=== PATIENT | male | born 1995 | race Caucasian/White ===

== ENCOUNTER 2021-10-25 15:02 | Observation (INO) ==
[2021-10-25 15:41] LABS: Basophils # (auto) 0.02 K/uL (0-0.2); Basophils % (auto) 0.3 %; Eosinophils # (auto) 0.05 K/uL (0-0.5); Eosinophils % (auto) 0.9 %; Hematocrit (blood only) 43.7 % (42-52); Hemoglobin 16.1 g/dL (14.0-18.0); Immature Granulocytes # (auto) 0.01 K/uL (0.00-0.02); Immature Granulocytes % (auto) 0.2 %; Lymphocytes # (auto) 1.32 K/uL (1.2-3.4); Mean Corpuscular Hemoglobin 30.7 pg (25-34); Mean Corpuscular Hgb Conc 36.8 g/dL (32-36); Mean Corpuscular Volume 83.4 fL (80-100); Mean Platelet Volume 9.6 fL (7.4-10.4); Monocytes # (auto) 0.64 K/uL (0.11-0.59); Monocytes % (auto) 11.2 %; Neutrophils # (auto) 3.69 K/uL (1.4-6.5); Neutrophils % (auto) 64.4 %; Platelet Count 304 K/uL (130-400); RDW Coefficient of Variation 12.1 % (11.5-14.5); RDW Standard Deviation 36.8 fL (36.4-46.3); Red Blood Count 5.24 M/uL (4.7-6.1); White Blood Count 5.73 K/uL (4.8-10.8)
[2021-10-25 16:02] LABS: Albumin Globulin Ratio 1.3 (0.9-2); Albumin Level 4.9 gm/dl (3.4-5.0); BUN Creatinine Ratio 14.7 (10-20); Bilirubin,Total 0.5 mg/dl (0.2-1.0); C Reactive Protein 4.56 mg/dl (0-0.5); Calcium 10.3 mg/dl (8.5-10.1); Creatinine Clr Calc Pharmacy 173.5 ml/min; Est GFR (African American) 146.7 ml/min; Est GFR (Non-African American) 126.6 ml/min; Globulin 3.7 gm/dl (2.5-4.0); Potassium 3.5 mmol/L (3.5-5.1); Total Protein 8.6 gm/dl (6.0-8.3)
[2021-10-25] MEDS ORDERED: VANCOMYCIN CONSULT ACTIVE PRN (16:05)
[2021-10-25 16:26] LABS: Procalcitonin < 0.05 ng/ml (0-0.5)
[2021-10-25] MEDS: VANCOMYCIN HCL 1,750 MG in SODIUM CHLORIDE 0.9% 500 ML IV ONE ×2 (16:30→16:34)
--- NOTE | 2021-10-25 16:30 | XRay Report ---
XR elbow LT min 3V routine CLINICAL HISTORY: pain, swelling, redness, purulent discharge. COMPARISON STUDY: No previous studies for comparison. TECHNIQUE: 3 left elbow views FINDINGS: Bones: There is no evidence for an acute fracture or dislocation. There is no lytic or blastic lesion . Joints: The joint spaces are maintained. There is no evidence for an intra-articular effusion or elev ation of the fat pads. The bones are in anatomic alignment. Soft tissues: There is mild soft tissue swelling seen surrounding the elbow particularly posteriorly. There is no radiopaque foreign body. IMPRESSION: 1. No acute osseous pathology. 2. Mild soft tissue swelling. ACT 112: Negative or not required by law. Electronically signed by: Yrn Juárez M.D. 10/25/2021 4:29 PM
[2021-10-25 16:32] LABS: Lyme Ab IgG w/WB Rflx Negative (Negative); Lyme Ab IgM w/WB Rflx Negative (Negative)
[2021-10-25] MEDS ORDERED: ONDANSETRON INJ 2 MG/ML 2 ML VIAL IV PRN (16:40)
[2021-10-25] MEDS ORDERED: MAGNESIUM HYDROXIDE SUSP 30 ML UDC PO PRN (16:40)
[2021-10-25] MEDS ORDERED: ACETAMINOPHEN 325 MG TAB PO PRN (16:40)
[2021-10-25] MEDS ORDERED: ALUMINUM/MAGNESIUM SUSP 30 ML UDC PO PRN (16:40)
[2021-10-25] MEDS ORDERED: POLYETHYLENE (MIRALAX) 17 GM PACK PO PRN (16:40)
--- NOTE | 2021-10-25 16:51 | Emergency Department Note ---
History of Present Illness General Chief complaint: Skin Problem Stated complaint: CYST ON L ELBOW Time Seen by Provider: 10/25/21 15:11 History of Present Illness Maximum Pain Intensity: 4 This 26-year-old male patient with no significant past medical history presents to the emergency department today for evaluation of left elbow infection. The patient reports no trauma or injury to the area. He was seen as an outpatient earlier today by [facility] and referred to the emergency department due to concern for joint infection. The patient's tetanus vaccination is not UTD. He has not been taking any medications for his symptoms. Pain is 4/10 and described as aching. Home Medications Medication Instructions Recorded Confirmed Type No Known Home Medications 10/25/21 10/25/21 History Allergies Allergy/AdvReac Type Severity Reaction Status Date / Time sulfamethoxazole Allergy Hives Verified 10/25/21 15:08 [From Bactrim] trimethoprim [From Bactrim] Allergy Hives Verified 10/25/21 15:08 AMOXICILLIN Allergy Unknown Hives Uncoded 10/25/21 15:08 Past Med/Surg History Social History Smoking Status: Never smoker Preferred Language: Wallisian Feels Safe at Home: Yes Review of Systems A total of 10 systems reviewed and were otherwise negative Physical Exam Vital Signs Vital Signs - 24 hr 10/25/21 15:05 Temperature 37.2 C Temperature Source Temporal Artery Scan Pulse Rate 118 H Pulse Rhythm Regular Pulse Strength Normal Respiratory Rate 20 Respiratory Effort / Characteristics Non-Labored Spontaneous Respiratory Depth Normal Respiratory Pattern Regular Blood Pressure 158/97 H Blood Pressure Mean 117 Blood Pressure Position Sitting Pulse Oximetry 99 Oxygen Delivery Method Room Air Sepsis Recent Fever Within 48 Hours No Sepsis New/Unexplained Change in Mental Status No Sepsis Action Taken by Nursing No Action Required VITALS: Vitals are noted on the nurse's note and reviewed by myself. Vital signs stable. GENERAL: This is a 26-year-old white male, in no acute distress, nondiaphoretic, well-developed well-nourished. SKIN: Erythema and edema of the left elbow. There is an open wound just proximal to the olecranon. The wound is draining purulent discharge. Not bleeding. No excoriations are clear evidence of trauma. The skin was otherwise without rashes, erythema, edema, or bruising. There is no tenting of the skin. Capillary refill less than 2 seconds. HEAD: Normocephalic atraumatic. EYES: Conjunctivae without injection, sclerae without icterus. NECK: Supple without nuchal rigidity. No lymphadenopathy. No JVD. HEART: Regular rate and rhythm without murmurs gallops or rubs. LUNGS: Clear to auscultation bilaterally without wheezes, rales or rhonchi. No retractions or accessory muscle use. MUSCULOSKELETAL: Patient is having difficulty with flexion due to the edema in the left elbow. Left elbow erythema and tenderness to palpation as previously noted. Otherwise, no muscle atrophy, erythema, or edema noted. Full range of motion without joint tenderness in all extremities except as noted. No tenderness to palpation. Normal gait. Strength 5/5 throughout. NEURO: Patient was alert and oriented to person place and time. No focal neurological deficits. Course Course The patient was seen and evaluated as above. An order was placed for continuous cardiac monitoring. The monitor shows a sinus tachycardia at a rate of 118 bpm. I discussed the case with Dr. Shah, [facility] orthopedic surgeon on-call. He recommended completing an MRI with contrast to evaluate for joint involvement. He recommends the patient be admitted to medicine for IV antibiotics and will consult. IV access obtained, labs drawn. Patient medicated with IV vancomycin. Imaging performed and reviewed by myself and radiologist as noted. Labs reviewed by myself. I discussed the recommendations with the patient at bedside. Patient was agreeable. I discussed the case with the environmental sustainability manager. I discussed the case with Dr. Segura, [facility] hospitalist. He did agree to see and evaluate the patient for admission. Administered Medications Vancomycin HCl 1,750 mg/ (Sodium Chloride) 535 mls @ 200 mls/hr IV NOW ONE Stop: 10/25/21 18:45 Last Admin: 10/25/21 16:34 Dose: Not Given Documented by: [id number] Medical Decision Making Differential Diagnosis Cellulitis, abscess, MRSA infection, DVT, necrotizing fasciitis, dermatitis, drug eruption, allergic reaction, as well as other pathologies. Medical Records Attestation: I reviewed the patient's medical records. Home Medications Current Medication List: was personally reviewed by me Laboratory Data Attestation: I reviewed the patient's lab results. No leukocytosis, anemia, thrombocytopenia. Renal, hepatic function, and electrolytes without significant abnormality. ESR 33. Lactic acid 1.8. CRP 4.56. Lyme disease testing negative. Procalcitonin negative. Result diagrams: 10/25/21 15:27 10/25/21 15:27 Lab Results 10/25/21 10/25/21 10/25/21 Range/Units 15:27 15:27 15:27 WBC 5.73 (4.8-10.8) K/uL RBC 5.24 (4.7-6.1) M/uL Hgb 16.1 (14.0-18.0) g/dL Hct 43.7 (42-52) % MCV 83.4 (80-100) fL MCH 30.7 (25-34) pg MCHC 36.8 H (32-36) g/dL RDW Std Deviation 36.8 (36.4-46.3) fL RDW Coeff of Sera 12.1 (11.5-14.5) % Plt Count 304 (130-400) K/uL MPV 9.6 (7.4-10.4) fL Immature Gran % (Auto) 0.2 % Neut % (Auto) 64.4 % Lymph % (Auto) 23.0 % Ventura % (Auto) 11.2 % Eos % (Auto) 0.9 % Baso % (Auto) 0.3 % Neut # (Auto) 3.69 (1.4-6.5) K/uL Lymph # (Auto) 1.32 (1.2-3.4) K/uL Ventura # (Auto) 0.64 H (0.11-0.59) K/uL Eos # (Auto) 0.05 (0-0.5) K/uL Baso # (Auto) 0.02 (0-0.2) K/uL Immature Gran # (Auto) 0.01 (0.00-0.02) K/uL ESR 33 H (0-15) mm/hr Sodium (136-145) mmol/L Potassium (3.5-5.1) mmol/L Chloride (98-107) mmol/L Carbon Dioxide (21-32) mmol/L Anion Gap (3-11) BUN (6-23) mg/dl Creatinine (0.6-1.4) mg/dl Est Cr Clr Drug Dosing ml/min Est GFR ( Amer) ml/min Est GFR (Non-Af Amer) ml/min BUN/Creatinine Ratio (10-20) Glucose (70-99(Fasting)) mg/dl Lactate 1.8 (0.4-2.0) mmol/L Calcium (8.5-10.1) mg/dl Total Bilirubin (0.2-1.0) mg/dl AST (13-39) U/L ALT (7-52) U/L Alkaline Phosphatase (34-104) U/L C-Reactive Protein (0-0.5) mg/dl Total Protein (6.0-8.3) gm/dl Albumin (3.4-5.0) gm/dl Globulin (2.5-4.0) gm/dl Albumin/Globulin Ratio (0.9-2) Procalcitonin (0-0.5) ng/ml Lyme Disease IgG Ab (Negative) Lyme Disease IgM Ab (Negative) 10/25/21 10/25/21 Range/Units 15:27 15:27 WBC (4.8-10.8) K/uL RBC (4.7-6.1) M/uL Hgb (14.0-18.0) g/dL Hct (42-52) % MCV (80-100) fL MCH (25-34) pg MCHC (32-36) g/dL RDW Std Deviation (36.4-46.3) fL RDW Coeff of Sera (11.5-14.5) % Plt Count (130-400) K/uL MPV (7.4-10.4) fL Immature Gran % (Auto) % Neut % (Auto) % Lymph % (Auto) % Ventura % (Auto) % Eos % (Auto) % Baso % (Auto) % Neut # (Auto) (1.4-6.5) K/uL Lymph # (Auto) (1.2-3.4) K/uL Ventura # (Auto) (0.11-0.59) K/uL Eos # (Auto) (0-0.5) K/uL Baso # (Auto) (0-0.2) K/uL Immature Gran # (Auto) (0.00-0.02) K/uL ESR (0-15) mm/hr Sodium 138 (136-145) mmol/L Potassium 3.5 (3.5-5.1) mmol/L Chloride 101 (98-107) mmol/L Carbon Dioxide 28 (21-32) mmol/L Anion Gap 9 (3-11) BUN 11 (6-23) mg/dl Creatinine 0.75 (0.6-1.4) mg/dl Est Cr Clr Drug Dosing 173.5 ml/min Est GFR ( Amer) 146.7 ml/min Est GFR (Non-Af Amer) 126.6 ml/min BUN/Creatinine Ratio 14.7 (10-20) Glucose 132 H (70-99(Fasting)) mg/dl Lactate (0.4-2.0) mmol/L Calcium 10.3 H (8.5-10.1) mg/dl Total Bilirubin 0.5 (0.2-1.0) mg/dl AST 18 (13-39) U/L ALT 30 (7-52) U/L Alkaline Phosphatase 76 (34-104) U/L C-Reactive Protein 4.56 H (0-0.5) mg/dl Total Protein 8.6 H (6.0-8.3) gm/dl Albumin 4.9 (3.4-5.0) gm/dl Globulin 3.7 (2.5-4.0) gm/dl Albumin/Globulin Ratio 1.3 (0.9-2) Procalcitonin < 0.05 (0-0.5) ng/ml Lyme Disease IgG Ab Negative (Negative) Lyme Disease IgM Ab Negative (Negative) Imaging Data Radiologist's Impression: Elbow X-Ray 10/25/21 15:17 XR elbow LT min 3V routine CLINICAL HISTORY: pain, swelling, redness, purulent discharge. COMPARISON STUDY: No previous studies for comparison. TECHNIQUE: 3 left elbow views FINDINGS: Bones: There is no evidence for an acute fracture or dislocation. There is no lytic or blastic lesion. Joints: The joint spaces are maintained. There is no evidence for an intra- articular effusion or elevation of the fat pads. The bones are in anatomic alignment. Soft tissues: There is mild soft tissue swelling seen surrounding the elbow particularly posteriorly. There is no radiopaque foreign body. IMPRESSION: 1. No acute osseous pathology. 2. Mild soft tissue swelling. ACT 112: Negative or not required by law. Electronically signed by: Yrn Juárez M.D. 10/25/2021 4:29 PM Blood Pressure Blood Pressure Findings: Elevated blood pressure Blood Pressure Disposition: further management by hospitalist MDM Narrative This 26-year-old male patient presents to the emergency department today at the recommendation of [facility] for evaluation of left elbow pain and swelling. The patient has a wound which is draining purulent discharge. This was cultured. Patient is having difficulty with flexion of the elbow. Given the location of presentation, I am concerned for septic joint. I consulted with orthopedics. Pt. will be admitted to the hospitalist service. He was started on Vancomycin after consultation with ED pharmacist. Patient was agreeable to treatment plan. Tetanus vaccine was updated. Please see hospitalist dictation regarding ongoing management care of this patient. The chart was completed utilizing [employer] Speech voice recognition software. Grammatical errors, random word insertions, pronoun errors, and incomplete sentences are an occasional consequence of this system due to software limi tations, ambient noise, and hardware issues. Any formal questions or concerns about the content, text, or information contained within the body of this dictation should be directly addressed to the provider for clarification. Impression & Plan Cellulitis, Abscess of skin or subcutaneous tissue Discharge Plan Visit Data Chief Complaint: Skin Problem Stated Complaint: CYST ON L ELBOW ED Provider: Kun Hay ED Midlevel Provider: Radha Evangelista Discharge Problem: Cellulitis, Abscess of skin or subcutaneous tissue Patient Disposition: Admitted As Inpatient Forms Stand Alone Forms: [facility] Prescriptions Prescriptions: No Action No Known Home Medications RF: 0 Referrals Referrals: Kentrell Suazo DO [Primary Care Provider] -
[2021-10-25] MEDS ORDERED: DIPHTHERIA/TETANUS/PERTUSSIS 0.5 ML SYR/VIAL IM ONE (16:52)
--- NOTE | 2021-10-25 16:55 | History & Physical Report ---
Date of Service October 25, 2021 Assessment & Plan (1) Septic bursitis of elbow: Plan: MRI pending, but suspect this is all just septic bursitis. He is overall low risk for resistant bacteria, and is not septic systemically, so I will utilize first generation cephalosporin coverage. Can always escalate if there is any worsening. Consult orthopedics to evaluate the septic bursitis, and drain if appropriate. Discussed with patient the various possibilities based on whether this is truly septic bursitis is suspected, or an actual septic joint which seems far less likely. He expresses a good understanding of the plan (2) DVT prophylaxis: Plan: Low risk, nothing warranted (3) Discharge planning issues: Plan: Observe on medical [facility] hospitalist team, orthopedics consult, comes from home, anticipate he will be able to be discharged home when ready History of Present Illness Chief Complaint: elbow pain and swelling Primary Care Provider: Kentrell Suazo DO 4 days ago a red pimple on L elbow, then it opened and started draining - and then had some tracking redness/soreness/stiffness L arm proximal to elbow as well as distal on forearm. went to [facility] - told to come to ER. painful and elbow restricted due to stiffness but feels like it's more of a soft tissue stiffness than joint pain/stiffness. no f/c/s. no n/v. 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 does vape more or less daily, occassional wine was dx'd w bipolar before but notes that he's off all meds and believes the dx was erroneous. med hx none crhonic surg tonsils and wisdom teeth fam hx mom DM soc vapes as above Allergies Allergy/AdvReac Type Severity Reaction Status Date / Time sulfamethoxazole Allergy Hives Verified 10/25/21 15:08 [From Bactrim] trimethoprim [From Bactrim] Allergy Hives Verified 10/25/21 15:08 AMOXICILLIN Allergy Unknown Hives Uncoded 10/25/21 15:08 Home Medications Medication Instructions Recorded Confirmed Type No Known Home Medications 10/25/21 10/25/21 History Past Med/Surg History Social History Smoking Status: Never smoker Preferred Language: Macedonian Feels Safe at Home: Yes Review of Systems Review of Systems: All systems reviewed & are unremarkable except as noted in HPI & below Physical Exam Physical Exam: General he is awake and alert pleasant but does appear anxious. No distress. HEENT normocephalic atraumatic mucous membranes moist. Cardio is regular to maybe slightly tachycardic but no rubs murmurs gallops. Lungs clear to auscultation bilaterally no rales rhonchi or wheeze with good effort. Abdomen is soft nondistended nontender no masses organomegaly. Extremities show no cyanosis clubbing or edema no calf tendernesssee skin for left elbow. Neuro shows cranial nerves II through XII are grossly intact gross motor and sensory intact. Good strength in his left hand, good strength in his left elbow. Skin shows very warm erythema that is very tender and somewhat fluctuant at the extensor side of his left elbow, with an open wound consistent with a pustule that is draining. Right now the drainage is mostly bloody, although it apparently was exudative earlier. Very tender very erythematous, he has erythema tracking approximately 5 to 6 cm proximal on the extensor side of his arm, and also tracks most of the way to his wrist distally but very vague and patchy and not nearly as tender as the area right around his elbow. There is no crepitus, and the only area of fluctuance is immediately by his elbow. Again elbow itself seems to have fairly full active and passive range of motion only limited by what seems to be soft tissue pain and swelling. Mental status shows good reasonable recall normal mood and affect good judgment and insight. Musculoskeletal exam as above, no other gross deformities noted Results & Data Results & Data ([facility]) Vital Signs (Past 12 Hours) Vital Signs Temp Pulse Resp BP Pulse Ox 10/25/21 15:05 99.0 F 118 H 20 158/97 H 99 Code Status & VTE Plan VTE Prophylaxis Plan VTE Prophylaxis will be ordered: No PG Care Time/CCT Total # of Minutes Spent Total Time Spent with Patient: Total time spent is greater than 50% in coordination of care (as documented) at patient's floor/unit and/or counseling patient: Coding Level of Care Code INT OBSERVATION CARE 70M LVL 3 Diagnoses Septic bursitis of elbow M71.129 DVT prophylaxis Z29.9 Discharge planning issues Z02.9
[2021-10-25] MEDS: ceFAZolin 2000MG 2,000 MG/15 ML SYR IV SCH (20:05)
[2021-10-26] MEDS: ceFAZolin 2000MG 2,000 MG/15 ML SYR IV SCH ×3 (04:00→20:05)
[2021-10-26 07:00] LABS: Basophils # (auto) 0.03 K/uL (0-0.2); Basophils % (auto) 0.4 %; Eosinophils # (auto) 0.06 K/uL (0-0.5); Eosinophils % (auto) 0.8 %; Hematocrit (blood only) 40.8 % (42-52); Hemoglobin 14.8 g/dL (14.0-18.0); Immature Granulocytes # (auto) 0.01 K/uL (0.00-0.02); Immature Granulocytes % (auto) 0.1 %; Lymphocytes # (auto) 1.88 K/uL (1.2-3.4); Lymphocytes % (auto) 26.6 %; Mean Corpuscular Hemoglobin 30.6 pg (25-34); Mean Corpuscular Hgb Conc 36.3 g/dL (32-36); Mean Corpuscular Volume 84.5 fL (80-100); Mean Platelet Volume 9.6 fL (7.4-10.4); Monocytes # (auto) 0.87 K/uL (0.11-0.59); Monocytes % (auto) 12.3 %; Neutrophils # (auto) 4.21 K/uL (1.4-6.5); Neutrophils % (auto) 59.8 %; Platelet Count 323 K/uL (130-400); RDW Coefficient of Variation 11.9 % (11.5-14.5); Red Blood Count 4.83 M/uL (4.7-6.1); White Blood Count 7.06 K/uL (4.8-10.8)
[2021-10-26 07:09] LABS: BUN Creatinine Ratio 11.4 (10-20); Calcium 9.8 mg/dl (8.5-10.1); Creatinine Clr Calc Pharmacy 164.7 ml/min; Est GFR (African American) 143.6 ml/min; Est GFR (Non-African American) 123.9 ml/min; Potassium 3.7 mmol/L (3.5-5.1)
--- NOTE | 2021-10-26 07:22 | Magnetic Resonance Report ---
MR elbow LT wo con HISTORY: Left elbow redness, swelling, purulent discharge TECHNIQUE: Sagittal T2 and axial T1-weighted sequences of the left elbow were performed without contr ast. The patient was unable to tolerate the remaining examination. COMPARISON STUDY: Left elbow radiograph 10/25/2021. FINDINGS: The study is limited from a technical standpoint due to the patient unable to tolerate the entire examination and motion artifact. There is normal marrow signal intensity seen throughout the v isualized osseous structures. No fracture or dislocation. No joint effusion. Diffuse subcutaneous brad ma seen throughout the elbow. No significant muscular deep soft tissue edema identified. No definite loculated fluid collections to suggest an abscess. Best seen on sagittal T2 sequence image 14 there i s a punctate hyperintense focus within the subcutaneous soft tissues deep to the skin marker. This is nonspecific but could represent a small puncture wound and/or focus of subcutaneous gas. There is an enlarged epitrochlear lymph node measuring 1.6 x 1.3 cm. The biceps and triceps tendons appear intac t. IMPRESSION: 1. The study is limited from a technical standpoint as the patient was unable to tolerate the entire examination. 2. Extensive subcutaneous edema throughout the elbow. No definite loculated fluid collections to sugg est an abscess. 3. No deep soft tissue edema or osteomyelitis identified. 4. No joint effusion. 5. Punctate hypointense focus within the subcutaneous soft tissues at the posterior elbow deep to the skin marker. This is nonspecific and could represent a puncture wound and/or small focus of subcutan eous gas. 5. Enlarged epitrochlear lymph node which is likely reactive ACT 112: Negative or not required by law. Electronically signed by: Trent Green M.D. 10/26/2021 7:21 AM
--- NOTE | 2021-10-26 08:29 | Hospitalist Progress Note ---
Date of Service October 26, 2021 Assessment & Plan (1) Septic bursitis of elbow: Plan: started with pimple approximately 4 days ago, drained and worsening erythema/pain/drainage. Elevated ESR/CRP on admission Cx in ER pending, many WBC, few gram positive cocci Blood cultures pending Lyme negative Orthopedics consulted MRI ordered: * 1. The study is limited from a technical standpoint as the patient was unable to tolerate the entire examination. * 2. Extensive subcutaneous edema throughout the elbow. No definite loculated fluid collections to suggest an abscess. * 3. No deep soft tissue edema or osteomyelitis identified. * 4. No joint effusion. * 5. Punctate hypointense focus within the subcutaneous soft tissues at the posterior elbow deep to the skin marker. This is nonspecific and could represent a puncture wound and/or small focus of subcutaneous gas. * 5. Enlarged epitrochlear lymph node which is likely reactive Placed on ancef, no evidence for sepsis at present. Lactic wnl on admission. Can escalate if needed/worsening however patient reports improvement, pain currently 3/10 Tylenol prn pain, antiemetics if needed Remains NPO for possible I&D today Placed on NSS while NPO for I&D asked RN to [place] area to monitor response WBC wnl, afebrile Continue to monitor (2) DVT prophylaxis: Plan: Young, low risk Nothing for now, ambulation encouraged Does have reported hx bipolar, was on medications at one point but these had been discontinued in the past (3) Discharge planning issues: Plan: NPO for OR today for I&D Admission and Anticipated Discharge Date Admission Date: October 25, 2021 Supervising Physician Co-Signing Physician Notes FROYLAN Supervision Note: I did not personally see or examine the patient today, but I verified all sheehan points of FROYLAN Muñoz's assessment and plan with the following exceptions/additions: None Subjective Patient evaluated this morning resting in bed, states previously pain so bad wasn't really able to sleep. had pimple there about 4 days ago popped, and since then worsening pain/erythema not sure if erythema improved or not as he hasn't checked but prior was mostly on back side of his arm going up to elbow but he does note pain significantly improved and rating a 3/10 currently, no need for pain medication at this time. does appear not as far up as previously described. asked rn to [place] area for comparison seen by ortho this morning, discussed small area of gas, and may require I&D. Keeping NPO for now, and will order some IVF, ask RN to provide mouth swab due to dry mouth, slight dehydration on exam until determination made. Discussed also possible another 24hr abx and then decision. Denies fever, chills, chest pain, shortness of breath, abdominal pain, nausea or vomiting at this time. Questions/concerns addressed. Review of Systems Review of Systems: All systems reviewed & are unremarkable except as noted in HPI & below Physical Exam Physical Exam: General: WD, WN male sitting up in bed, no acute distress HEENT: head normocephalic, atraumatic, mm dry, trachea midline without deviation Resp: CTAB, no w/c/r, on room air CV: RRR, no m/r/g, no edema, no calf tenderness GI: +BS, soft, non-tender : no jo MSK/Neuro: L elbow with optifoam covering small opening with purulant drainage on dressing but none able to be expressed. mildly tender to palpation with associated soft tissue swelling, warmth, and erythema., range of motion intact at the elbow and good range of motion through the hand/wrist/finger. cap refill <2 seconds Skin: see msk, otherwise no other obvious lesions/rashes Psych: AOx3, flat affect Results & Data Results & Data ([facility]) Vital Signs (Past 12 Hours) Vital Signs Temp Pulse Resp BP Pulse Ox 10/26/21 07:35 37.1 C 85 18 121/75 100 Laboratory Results 10/26/21 10/26/21 10/25/21 Range/Units 05:55 05:55 16:42 WBC 7.06 (4.8-10.8) K/uL RBC 4.83 (4.7-6.1) M/uL Hgb 14.8 (14.0-18.0) g/dL Hct 40.8 L (42-52) % MCV 84.5 (80-100) fL MCH 30.6 (25-34) pg MCHC 36.3 H (32-36) g/dL RDW Std Deviation 37.0 (36.4-46.3) fL RDW Coeff of Sera 11.9 (11.5-14.5) % Plt Count 323 (130-400) K/uL MPV 9.6 (7.4-10.4) fL Immature Gran % (Auto) 0.1 % Neut % (Auto) 59.8 % Lymph % (Auto) 26.6 % [place] % (Auto) 12.3 % Eos % (Auto) 0.8 % Baso % (Auto) 0.4 % Neut # (Auto) 4.21 (1.4-6.5) K/uL Lymph # (Auto) 1.88 (1.2-3.4) K/uL [place] # (Auto) 0.87 H (0.11-0.59) K/uL Eos # (Auto) 0.06 (0-0.5) K/uL Baso # (Auto) 0.03 (0-0.2) K/uL Immature Gran # (Auto) 0.01 (0.00-0.02) K/uL ESR (0-15) mm/hr Sodium 140 (136-145) mmol/L Potassium 3.7 (3.5-5.1) mmol/L Chloride 103 (98-107) mmol/L Carbon Dioxide 28 (21-32) mmol/L Anion Gap 9 (3-11) BUN 9 (6-23) mg/dl Creatinine 0.79 (0.6-1.4) mg/dl Est Cr Clr Drug Dosing 164.7 ml/min Est GFR ( Amer) 143.6 ml/min Est GFR (Non-Af Amer) 123.9 ml/min BUN/Creatinine Ratio 11.4 (10-20) Glucose 95 (70-99(Fasting)) mg/dl Lactate (0.4-2.0) mmol/L Calcium 9.8 (8.5-10.1) mg/dl Total Bilirubin (0.2-1.0) mg/dl AST (13-39) U/L ALT (7-52) U/L Alkaline Phosphatase (34-104) U/L C-Reactive Protein (0-0.5) mg/dl Total Protein (6.0-8.3) gm/dl Albumin (3.4-5.0) gm/dl Globulin (2.5-4.0) gm/dl Albumin/Globulin Ratio (0.9-2) Procalcitonin (0-0.5) ng/ml Lyme Disease IgG Ab (Negative) Lyme Disease IgM Ab (Negative) SARS-CoV-2, RNA, NAAT NEGATIVE (NEGATIVE) 10/25/21 10/25/21 10/25/21 Range/Units 15:27 15:27 15:27 WBC (4.8-10.8) K/uL RBC (4.7-6.1) M/uL Hgb (14.0-18.0) g/dL Hct (42-52) % MCV (80-100) fL MCH (25-34) pg MCHC (32-36) g/dL RDW Std Deviation (36.4-46.3) fL RDW Coeff of Sera (11.5-14.5) % Plt Count (130-400) K/uL MPV (7.4-10.4) fL Immature Gran % (Auto) % Neut % (Auto) % Lymph % (Auto) % [place] % (Auto) % Eos % (Auto) % Baso % (Auto) % Neut # (Auto) (1.4-6.5) K/uL Lymph # (Auto) (1.2-3.4) K/uL [place] # (Auto) (0.11-0.59) K/uL Eos # (Auto) (0-0.5) K/uL Baso # (Auto) (0-0.2) K/uL Immature Gran # (Auto) (0.00-0.02) K/uL ESR 33 H (0-15) mm/hr Sodium 138 (136-145) mmol/L Potassium 3.5 (3.5-5.1) mmol/L Chloride 101 (98-107) mmol/L Carbon Dioxide 28 (21-32) mmol/L Anion Gap 9 (3-11) BUN 11 (6-23) mg/dl Creatinine 0.75 (0.6-1.4) mg/dl Est Cr Clr Drug Dosing 173.5 ml/min Est GFR ( Amer) 146.7 ml/min Est GFR (Non-Af Amer) 126.6 ml/min BUN/Creatinine Ratio 14.7 (10-20) Glucose 132 H (70-99(Fasting)) mg/dl Lactate (0.4-2.0) mmol/L Calcium 10.3 H (8.5-10.1) mg/dl Total Bilirubin 0.5 (0.2-1.0) mg/dl AST 18 (13-39) U/L ALT 30 (7-52) U/L Alkaline Phosphatase 76 (34-104) U/L C-Reactive Protein 4.56 H (0-0.5) mg/dl Total Protein 8.6 H (6.0-8.3) gm/dl Albumin 4.9 (3.4-5.0) gm/dl Globulin 3.7 (2.5-4.0) gm/dl Albumin/Globulin Ratio 1.3 (0.9-2) Procalcitonin < 0.05 (0-0.5) ng/ml Lyme Disease IgG Ab Negative (Negative) Lyme Disease IgM Ab Negative (Negative) SARS-CoV-2, RNA, NAAT (NEGATIVE) 10/25/21 10/25/21 Range/Units 15:27 15:27 WBC 5.73 (4.8-10.8) K/uL RBC 5.24 (4.7-6.1) M/uL Hgb 16.1 (14.0-18.0) g/dL Hct 43.7 (42-52) % MCV 83.4 (80-100) fL MCH 30.7 (25-34) pg MCHC 36.8 H (32-36) g/dL RDW Std Deviation 36.8 (36.4-46.3) fL RDW Coeff of Sera 12.1 (11.5-14.5) % Plt Count 304 (130-400) K/uL MPV 9.6 (7.4-10.4) fL Immature Gran % (Auto) 0.2 % Neut % (Auto) 64.4 % Lymph % (Auto) 23.0 % [place] % (Auto) 11.2 % Eos % (Auto) 0.9 % Baso % (Auto) 0.3 % Neut # (Auto) 3.69 (1.4-6.5) K/uL Lymph # (Auto) 1.32 (1.2-3.4) K/uL [place] # (Auto) 0.64 H (0.11-0.59) K/uL Eos # (Auto) 0.05 (0-0.5) K/uL Baso # (Auto) 0.02 (0-0.2) K/uL Immature Gran # (Auto) 0.01 (0.00-0.02) K/uL ESR (0-15) mm/hr Sodium (136-145) mmol/L Potassium (3.5-5.1) mmol/L Chloride (98-107) mmol/L Carbon Dioxide (21-32) mmol/L Anion Gap (3-11) BUN (6-23) mg/dl Creatinine (0.6-1.4) mg/dl Est Cr Clr Drug Dosing ml/min Est GFR ( Amer) ml/min Est GFR (Non-Af Amer) ml/min BUN/Creatinine Ratio (10-20) Glucose (70-99(Fasting)) mg/dl Lactate 1.8 (0.4-2.0) mmol/L Calcium (8.5-10.1) mg/dl Total Bilirubin (0.2-1.0) mg/dl AST (13-39) U/L ALT (7-52) U/L Alkaline Phosphatase (34-104) U/L C-Reactive Protein (0-0.5) mg/dl Total Protein (6.0-8.3) gm/dl Albumin (3.4-5.0) gm/dl Globulin (2.5-4.0) gm/dl Albumin/Globulin Ratio (0.9-2) Procalcitonin (0-0.5) ng/ml Lyme Disease IgG Ab (Negative) Lyme Disease IgM Ab (Negative) SARS-CoV-2, RNA, NAAT (NEGATIVE) Diagnostic Findings Elbow X-Ray 10/25/21 15:17 XR elbow LT min 3V routine CLINICAL HISTORY: pain, swelling, redness, purulent discharge. COMPARISON STUDY: No previous studies for comparison. TECHNIQUE: 3 left elbow views FINDINGS: Bones: There is no evidence for an acute fracture or dislocation. There is no l ytic or blastic lesion. Joints: The joint spaces are maintained. There is no evidence for an intra- articular effusion or elevation of the fat pads. The bones are in anatomic alignment. Soft tissues: There is mild soft tissue swelling seen surrounding the elbow particularly posteriorly. There is no radiopaque foreign body. IMPRESSION: 1. No acute osseous pathology. 2. Mild soft tissue swelling. ACT 112: Negative or not required by law. Electronically signed by: Yrn Juárez M.D. 10/25/2021 4:29 PM Elbow MRI 10/25/21 15:47 MR elbow LT wo con HISTORY: Left elbow redness, swelling, purulent discharge TECHNIQUE: Sagittal T2 and axial T1-weighted sequences of the left elbow were performed without contrast. The patient was unable to tolerate the remaining examination. COMPARISON STUDY: Left elbow radiograph 10/25/2021. FINDINGS: The study is limited from a technical standpoint due to the patient unable to tolerate the entire examination and motion artifact. There is normal marrow signal intensity seen throughout the visualized osseous structures. No fracture or dislocation. No joint effusion. Diffuse subcutaneous edema seen throughout the elbow. No significant muscular deep soft tissue edema identified. No definite loculated fluid collections to suggest an abscess. Best seen on sagittal T2 sequence image 14 there is a punctate hyperintense focus within the subcutaneous soft tissues deep to the skin marker. This is nonspecific but could represent a small puncture wound and/or focus of subcutaneous gas. There is an enlarged epitrochlear lymph node measuring 1.6 x 1.3 cm. The biceps and triceps tendons appear intact. IMPRESSION: 1. The study is limited from a technical standpoint as the patient was unable to tolerate the entire examination. 2. Extensive subcutaneous edema throughout the elbow. No definite loculated fluid collections to suggest an abscess. 3. No deep soft tissue edema or osteomyelitis identified. 4. No joint effusion. 5. Punctate hypointense focus within the subcutaneous soft tissues at the posterior elbow deep to the skin marker. This is nonspecific and could represent a puncture wound and/or small focus of subcutaneous gas. 5. Enlarged epitrochlear lymph node which is likely reactive ACT 112: Negative or not required by law. Electronically signed by: Trent Green M.D. 10/26/2021 7:21 AM PG Care Time/CCT Total # of Minutes Spent Total Time Spent with Patient: Total time spent is greater than 50% in coordination of care (as documented) at patient's floor/unit and/or counseling patient: Coding Level of Care Code 74686 Subseq Obs Care Lvl 2 Diagnoses Septic bursitis of elbow M71.129 DVT prophylaxis Z29.9 Discharge planning issues Z02.9
--- NOTE | 2021-10-26 10:00 | Orthopedic Consultation ---
Date of Consultation October 26, 2021 Assessment & Plan (1) Septic bursitis of elbow: X-ray and MRI reviewed. No obvious abscesses noted but question of gas near the area of the open wound of the elbow. The open wound is very small at this point time and I am unable to express any purulence from it. No obvious areas of fluctuance or fluid collection that I can appreciate. Patient is not quite 24 hours yet of antibiotics. I will discuss the case with Dr. Ortiz who is on-call for the weekend. Will discuss the possibility of a need for irrigation and debridement. Continue n.p.o. for now. Continue IV antibiotics. Addendum 10:59; case discussed with Dr. Ortiz. With surrounding erythema and swelling in the open wound, we will plan to go forward with an open irrigation and debridement of the left septic olecranon bursa today. History of Present Illness Reason for Consultation: Left olecranon bursitis Attending Physician: Lillie Kelley MD History of Present Illness Patient is a 26-year-old male who was admitted by the hospitalist service for a left olecranon bursitis. Patient states he began having pain approximately 4 days prior to admission. He started having increased erythema and swelling that traveled proximally and distally from the elbow. A certain point in time he began having increased elbow stiffness. He developed a small area over the elbow itself that opened up and drained. His symptoms continue to worsen. He was seen at [facility] and was then directed to the emergency room. He was seen by the staff. It was felt that he needed admitted for IV antibiotics for infection and we have been asked to see him for his left elbow infection. Currently the patient was sleeping upon arrival but was easily awoken. He states that the arm is feeling better today since being started on antibiotics. No new complaints. Allergies Allergy/AdvReac Type Severity Reaction Status Date / Time sulfamethoxazole Allergy Hives Verified 10/25/21 15:08 [From Bactrim] trimethoprim [From Bactrim] Allergy Hives Verified 10/25/21 15:08 AMOXICILLIN Allergy Unknown Hives Uncoded 10/25/21 15:08 Home Medications Medication Instructions Recorded Confirmed Type No Known Home Medications 10/25/21 10/25/21 History Patient History Social History Smoking Status: Never smoker Cigarettes Per Day: pt states he vapes occasionally; Second Hand Exposure: No; Hx Alcohol Use: Yes Alcohol type: wine Hx Substance Use: No Preferred Language: Italian Communication Ability: Effective Power Operator Required: No Beliefs That Will Affect Care: None Current Living Situation: Parent Feels Safe at Home: Yes Assistive Devices: None Physical Exam Physical Exam: Patient is a 26-year-old white male. Alert and oriented x3. No acute distress. Pleasant cooperative. On examination of his left elbow, he has noted mild erythema that is still present on the forearm as well as on the upper arm above the elbow. He does have some mild swelling noted of the forearm of which he states is better. There is a small Band-Aid over the elbow at this time. This is removed. There is some bloody drainage on the bandage itself. There is no foul odor. He has a small wound over the elbow with an area of induration around it. He has moderate tenderness over the elbow on palpation. The tenderness goes proximally up to about mid upper arm and then dissipates. No pain in the left shoulder. The erythema extends around the elbow itself. He has pain on palpation is noted but I am unable to express any purulence from the wound itself. There is no obvious fluctuance in the elbow at this time. Any swelling that he has around the elbow is firm. Patient has good range of motion of his elbow at this time. He has no overt joint pain with range of motion. He has good range of motion of his left wrist/hand/fingers. Capillary refill is less than 2 seconds. There is no gross motor or sensory loss seen at this time. Results & Data ([facility]) Vital Signs (Past 12 Hours) Vital Signs Temp Pulse Resp BP Pulse Ox 10/26/21 07:35 37.1 C 85 18 121/75 100 Laboratory Results Laboratory Results WBC 7.06 K/uL (4.8-10.8) 10/26/21 05:55 RBC 4.83 M/uL (4.7-6.1) 10/26/21 05:55 Hgb 14.8 g/dL (14.0-18.0) 10/26/21 05:55 Hct 40.8 % (42-52) L 10/26/21 05:55 MCV 84.5 fL (80-100) 10/26/21 05:55 MCH 30.6 pg (25-34) 10/26/21 05:55 MCHC 36.3 g/dL (32-36) H 10/26/21 05:55 RDW Std Deviation 37.0 fL (36.4-46.3) 10/26/21 05:55 RDW Coeff of Sera 11.9 % (11.5-14.5) 10/26/21 05:55 Plt Count 323 K/uL (130-400) 10/26/21 05:55 MPV 9.6 fL (7.4-10.4) 10/26/21 05:55 Immature Gran % (Auto) 0.1 % 10/26/21 05:55 Neut % (Auto) 59.8 % 10/26/21 05:55 Lymph % (Auto) 26.6 % 10/26/21 05:55 [place] % (Auto) 12.3 % 10/26/21 05:55 Eos % (Auto) 0.8 % 10/26/21 05:55 Baso % (Auto) 0.4 % 10/26/21 05:55 Neut # (Auto) 4.21 K/uL (1.4-6.5) 10/26/21 05:55 Lymph # (Auto) 1.88 K/uL (1.2-3.4) 10/26/21 05:55 [place] # (Auto) 0.87 K/uL (0.11-0.59) H 10/26/21 05:55 Eos # (Auto) 0.06 K/uL (0-0.5) 10/26/21 05:55 Baso # (Auto) 0.03 K/uL (0-0.2) 10/26/21 05:55 Immature Gran # (Auto) 0.01 K/uL (0.00-0.02) 10/26/21 05:55 ESR 33 mm/hr (0-15) H 10/25/21 15:27 Sodium 140 mmol/L (136-145) 10/26/21 05:55 Potassium 3.7 mmol/L (3.5-5.1) 10/26/21 05:55 Chloride 103 mmol/L (98-107) 10/26/21 05:55 Carbon Dioxide 28 mmol/L (21-32) 10/26/21 05:55 Anion Gap 9 (3-11) 10/26/21 05:55 BUN 9 mg/dl (6-23) 10/26/21 05:55 Creatinine 0.79 mg/dl (0.6-1.4) 10/26/21 05:55 Est Cr Clr Drug Dosing 164.7 ml/min 10/26/21 05:55 Est GFR ( Amer) 143.6 ml/min 10/26/21 05:55 Est GFR (Non-Af Amer) 123.9 ml/min 10/26/21 05:55 BUN/Creatinine Ratio 11.4 (10-20) 10/26/21 05:55 Glucose 95 mg/dl (70-99(Fasting)) 10/26/21 05:55 Lactate 1.8 mmol/L (0.4-2.0) 10/25/21 15:27 Calcium 9.8 mg/dl (8.5-10.1) 10/26/21 05:55 Total Bilirubin 0.5 mg/dl (0.2-1.0) 10/25/21 15:27 AST 18 U/L (13-39) 10/25/21 15:27 ALT 30 U/L (7-52) 10/25/21 15:27 Alkaline Phosphatase 76 U/L (34-104) 10/25/21 15:27 C-Reactive Protein 4.56 mg/dl (0-0.5) H 10/25/21 15:27 Total Protein 8.6 gm/dl (6.0-8.3) H 10/25/21 15:27 Albumin 4.9 gm/dl (3.4-5.0) 10/25/21 15:27 Globulin 3.7 gm/dl (2.5-4.0) 10/25/21 15:27 Albumin/Globulin Ratio 1.3 (0.9-2) 10/25/21 15:27 Procalcitonin < 0.05 ng/ml (0-0.5) 10/25/21 15:27 Lyme Disease IgG Ab Negative (Negative) 10/25/21 15:27 Lyme Disease IgM Ab Negative (Negative) 10/25/21 15:27 SARS-CoV-2, RNA, NAAT NEGATIVE (NEGATIVE) 10/25/21 16:42 Impressions Elbow X-Ray 10/25/21 15:17 XR elbow LT min 3V routine CLINICAL HISTORY: pain, swelling, redness, purulent discharge. COMPARISON STUDY: No previous studies for comparison. TECHNIQUE: 3 left elbow views FINDINGS: Bones: There is no evidence for an acute fracture or dislocation. There is no lytic or blastic lesion. Joints: The joint spaces are maintained. There is no evidence for an intra- articular effusion or elevation of the fat pads. The bones are in anatomic alignment. Soft tissues: There is mild soft tissue swelling seen surrounding the elbow particularly posteriorly. There is no radiopaque foreign body. IMPRESSION: 1. No acute osseous pathology. 2. Mild soft tissue swelling. ACT 112: Negative or not required by law. Electronically signed by: Yrn Juárez M.D. 10/25/2021 4:29 PM Elbow MRI 10/25/21 15:47 MR elbow LT wo con HISTORY: Left elbow redness, swelling, purulent discharge TECHNIQUE: Sagittal T2 and axial T1-weighted sequences of the left elbow were performed without contrast. The patient was unable to tolerate the remaining examination. COMPARISON STUDY: Left elbow radiograph 10/25/2021. FINDINGS: The study is limited from a technical standpoint due to the patient unable to tolerate the entire examination and motion artifact. There is normal marrow signal intensity seen throughout the visualized osseous structures. No fracture or dislocation. No joint effusion. Diffuse subcutaneous edema seen throughout the elbow. No significant muscular deep soft tissue edema identified. No definite loculated fluid collections to suggest an abscess. Best seen on sagittal T2 sequence image 14 there is a punctate hyperintense focus within the subcutaneous soft tissues deep to the skin marker. This is nonspecific but could represent a small puncture wound and/or focus of subcutaneous gas. There is an enlarged epitrochlear lymph node measuring 1.6 x 1.3 cm. The biceps and triceps tendons appear intact. IMPRESSION: 1. The study is limited from a technical standpoint as the patient was unable to tolerate the entire examination. 2. Extensive subcutaneous edema throughout the elbow. No definite loculated fluid collections to suggest an abscess. 3. No deep soft tissue edema or osteomyelitis identified. 4. No joint effusion. 5. Punctate hypointense focus within the subcutaneous soft tissues at the posterior elbow deep to the skin marker. This is nonspecific and could represent a puncture wound and/or small focus of subcutaneous gas. 5. Enlarged epitrochlear lymph node which is likely reactive ACT 112: Negative or not required by law. Electronically signed by: Trent Green M.D. 10/26/2021 7:21 AM
[2021-10-26] MEDS ORDERED: SODIUM CHLORIDE 0.9% 1000ML 1,000 ML IV SCH (10:45)
--- NOTE | 2021-10-26 12:42 | Anesthesiology Consultation ---
Date of Service October 26, 2021 Assessment & Plan (1) Encounter for pre-operative examination: Chart Review Chart Review: order entry initiated History Surgery Operation Date: 10/26/21 15:00 Proposed Procedures p Incision and Drainage Left Septic Olecranon Bursitis - Angel Ortiz DO Height/Weight Height: 6 ft 2 in Weight: 89.9 kg Allergies Allergy/AdvReac Type Severity Reaction Status Date / Time sulfamethoxazole Allergy Hives Verified 10/25/21 15:08 [From Bactrim] trimethoprim [From Bactrim] Allergy Hives Verified 10/25/21 15:08 AMOXICILLIN Allergy Unknown Hives Uncoded 10/25/21 15:08 Medications Home Medications Medication Instructions Recorded Confirmed Last Taken No Known Home Medications 10/25/21 10/25/21 Unknown Active Medications Generic Name Dose Route Start Last Admin Trade Name Freq PRN Reason Stop Dose Admin Cefazolin Sodium 2,000 mg in 15 mls @ 3.75 mls/min 10/25/21 20:00 10/26/21 11:57 Ancef 2000mg IV 11/01/21 19:59 3.75 mls/min Q8H KIEL Administration Protocol Sodium Chloride 1,000 mls @ 80 mls/hr 10/26/21 10:45 10/26/21 10:48 Nss 1000ml IV 11/25/21 10:44 80 mls/hr .[id number] KIEL Administration NPO Date Last Intake of Fluids: 10/25/21 Time Last Intake of Fluids: 23:59 Date Last Intake of Solids: 10/25/21 Time Last Intake of Solids: 23:59 Social History Smoking Status: Never smoker Smoking cigarettes per day: pt states he vapes occasionally Do You Dip or Chew Tobacco: No Hx Alcohol Use: Yes Alcohol type: wine alcohol intake frequency: a few times a month Hx Substance Use: No Physical Exam Vital Signs Last Vital Signs Temp 98.8 F 10/26/21 07:35 Pulse 85 10/26/21 07:35 Resp 18 10/26/21 07:35 BP 121/75 10/26/21 07:35 Pulse Ox 100 10/26/21 07:35 Testing Laboratory Results 10/26/21 05:55 10/26/21 05:55 10/25/21 15:15 Gram Stain - Final Elbow,Left Wound Culture - Preliminary Staphylococcus species Laboratory Tests 10/25/21 16:42 SARS-CoV-2, RNA, NAAT NEGATIVE
--- NOTE | 2021-10-26 13:40 | History & Physical Bridge Note ---
Date of Service October 26, 2021 History & Physical Bridge Note I have examined the patient, reviewed the History & Physical and in the interval since the performance of the History & Physical I have noted the following changes of clinical significance: no changes noted
[2021-10-26] MEDS ORDERED: LABETALOL HCL IV 5 MG/ML 20ML IV PRN (15:11)
[2021-10-26] MEDS ORDERED: PHENYLEPHRINE 100MCG/ML 5ML SYR IV PRN (15:11)
[2021-10-26] MEDS ORDERED: ATROPINE SULFATE 0.1 MG/ML 10ML SYR IV PRN (15:11)
[2021-10-26] MEDS ORDERED: ePHEDrine sulfate 50 MG/ML AMP IV PRN (15:11)
[2021-10-26] MEDS ORDERED: HYDROmorphone INJ 1 MG/ML SYRINGE IV PRN (15:11)
[2021-10-26] MEDS ORDERED: MEPERIDINE HCL 25 MG/ML CARP/VIAL IV PRN (15:11)
[2021-10-26] MEDS ORDERED: fentaNYL citrate 100 MCG/2 ML VIAL IV PRN (15:11)
[2021-10-26] MEDS ORDERED: ONDANSETRON INJ 2 MG/ML 2 ML VIAL IV PRN (15:11)
[2021-10-26] MEDS ORDERED: PROPOFOL IV EMULSION 10 MG/ML 20 ML VIAL IV ONE (15:34)
[2021-10-26] MEDS ORDERED: LIDOCAINE 2% 20 MG/ML 5 ML SYR IV ONE (15:34)
[2021-10-26] MEDS ORDERED: MIDAZOLAM HCL 1 MG/ML 2ML VIAL ONE (15:35)
[2021-10-26] MEDS ORDERED: fentaNYL citrate 100 MCG/2 ML VIAL ONE (15:35)
[2021-10-26] MEDS ORDERED: ceFAZolin 330 MG/ML 1 GM VIAL ONE (15:45)
[2021-10-26] MEDS ORDERED: ONDANSETRON INJ 2 MG/ML 2 ML VIAL ONE (16:50)
[2021-10-26] MEDS ORDERED: DEXAMETHASONE SOD INJ 4 MG/ML VIAL ONE (16:50)
[2021-10-26] MEDS ORDERED: HYDROmorphone INJ 2 MG/ML SYR/VIAL ONE (16:51)
[2021-10-26] MEDS ORDERED: KETOROLAC 30 MG/ML VIAL ONE (16:54)
--- NOTE | 2021-10-26 17:10 | Post Operative Brief Note ---
Immediate Post Op Note v1 Date of Surgery October 26, 2021 Pre & Post Diagnosis Operation Date: 10/26/21 15:00 Pre-Op Diagnosis: Left elbow septic bursitis, cellulitis left elbow Post-Op Diagnosis: Left elbow septic bursitis, cellulitis left elbow I identified the patient and participated in the time-out.: Yes Procedure Operation Date: 10/26/21 15:00 Actual Procedures p Left Elbow Irrigation and Debridement and Left Olecranon Bursectomy(Left) - Angel Ortiz DO Surgeon Angel Ortiz DO Staff Physician Pepe Garay PA-C Estimated Blood Loss 25 Findings Consistent with Post-Op Diagnosis Specimens Aerobic, anaerobic, Gram stain left elbow Septic olecranon bursa left Drains Other (1/2 inch iodoform gauze) Anesthesia Type General Complications none Disposition Accompanied Patient To Recovery: Yes
--- NOTE | 2021-10-26 18:12 | Anesthesiology Progress Note ---
Date of Service October 26, 2021 Anesthesia Post Procedure Vital Signs Vital Signs: Temp Pulse Pulse Pulse Resp BP Pulse Ox 10/26/21 17:55 124 H 13 147/87 H 95 10/26/21 17:45 82 7 L 131/74 95 10/26/21 17:35 82 8 L 137/68 96 10/26/21 17:25 83 9 L 144/77 H 96 10/26/21 17:16 36.3 C L 83 17 130/79 96 10/26/21 15:25 37 C 107 H 16 142/78 H 100 10/26/21 07:35 37.1 C 85 18 121/75 100 10/25/21 19:19 37.3 C 90 18 150/89 H 99 Pain Intensity Left Elbow: Pain Intensity: 2 Transfer of Care Handoff Completed per policy Notes Mental Status: alert / awake / arousable Patient Amnestic to Procedure: Yes Nausea / Vomiting: adequately controlled Pain: adequately controlled Airway Patency, RR, SpO2: stable & adequate BP & HR: stable & adequate Hydration State: stable & adequate Anesthetic Complications: no major complications apparent and Pt Satisfied with anesthetic care Notes: The patient's HR briefly went to the 120s when he woke up but is now in the 90s.
[2021-10-26] MEDS ORDERED: MAGNESIUM HYDROXIDE SUSP 30 ML UDC PO PRN (18:25)
[2021-10-26] MEDS ORDERED: NALOXONE HCL 0.4 MG/1 ML VIAL/CARP IV PRN (18:25)
[2021-10-26] MEDS ORDERED: bisacodyL 10 MG SUPP PR PRN (18:25)
[2021-10-26] MEDS ORDERED: oxyCODONE HCL IR 5 MG TAB (IMMEDIATE RELEASE) PO PRN (18:25)
[2021-10-26] MEDS ORDERED: METOCLOPRAMIDE HCL INJ 5 MG/ML 2 ML VIAL IV PRN (18:25)
[2021-10-26] MEDS ORDERED: KETOROLAC TROMETHAMINE 15 MG/ML VIAL IV PRN (18:25)
[2021-10-26] MEDS ORDERED: HYDROmorphone INJ 0.5 MG/0.5 ML SYR IV PRN (18:25)
[2021-10-26] MEDS ORDERED: diphenhydrAMINE Capsule 25 MG CAP PO PRN (18:25)
[2021-10-26] MEDS: SODIUM CHLORIDE 0.9% 1000ML 1,000 ML IV SCH (18:44)
[2021-10-26] MEDS: DOCUSATE SODIUM 100 MG CAP PO SCH (22:12)
[2021-10-26] MEDS: SENNA 8.6 MG TAB PO SCH (22:12)
[2021-10-26] MEDS: ACETAMINOPHEN 500 MG TAB PO SCH (22:13)
--- NOTE | 2021-10-26 23:37 | Operative Report (OR) ---
DATE OF PROCEDURE: 10/26/2021. PREOPERATIVE DIAGNOSES: 1. Left elbow septic bursitis. 2. Cellulitis, left upper arm. POSTOPERATIVE DIAGNOSES: 1. Left elbow septic bursitis. 2. Cellulitis, left upper arm. PROCEDURE: 1. Irrigation and debridement, left elbow. 2. Olecranon bursectomy. SURGEON: Angel Ortiz DO BOOK CLEANER: Pepe Garay PA-C who was present for patient positioning, sterile prep and drape, management of retractors and instruments. He was present through the critical portions of the case in cluding wound closure, application of sterile dressing and transport of the patient to recovery. ANESTHESIA: General LMA. SPECIMENS: 1. Aerobic, anaerobic, Gram stain, left elbow. 2. Olecranon bursa, left elbow. DRAINS: A 1/2 inch iodoform gauze. COMPLICATIONS: None. BLOOD LOSS: 25 mL. PERTINENT HISTORY: This is a 26-year-old who had developed left elbow pain, swelling, and redness ov er the last several days. He attempted and failed conservative management including observation and Tylenol and anti-inflammatories. He was seen in the Emergency Department, diagnosed with cellulitis with olecranon bursitis, admitted to the hospitalist service. Orthopedics was consulted and the clarke ent was then scheduled for surgery as indicated. All potential risks, benefits, complications, alternatives, rehab potential for incomplete relief of symptoms, need for further surgery, DVT, PE, , persistent pain, swelling, scarring, weakness, ne urovascular injury, need for further surgery or debridement was discussed with the patient. The clarke ent then decided to proceed with the procedure as indicated. DESCRIPTION OF PROCEDURE: The patient was taken to the operative suite and placed supine on the oper ating table. After review of consent and identification of proper site, the patient was anesthetized , LMA was placed. Tourniquet was placed high on the left upper extremity over cast padding. The lef t upper extremity was then sterilely prepped and draped in usual fashion, elevated, and tourniquet in flated to 250 mmHg. There was no exsanguination performed due to the nature of the infection. Next, after surgical timeout was performed, a 15 blade scalpel was used to make an incision over the olecranon bursa extending proximal and distal encompassing the sinus tract from the draining sinus at the elbow. Incision was then deepened through skin and subcutaneous tissue. Meticulous hemostasis was achieved with electrocautery. Full thickness skin flaps were developed using 15-blade scalpel di ssection and tenotomy scissor dissection. Dexter rakes were applied to retract soft tissue followed by placement of a Weitlaner retractor. After the olecranon bursa was then clearly defined using sharp and dull dissection with tenotomy scissors, the olecranon bursectomy was then performed while excisin g the olecranon bursa in its entirety using tenotomy scissor dissection. The bursa was passed off as specimen. Also specimen of the fluid from the bursa was also captured and sent for aerobic, anaerob ic and Gram stain analysis. Next, pulsatile lavage, 3 liters saline with Ancef additive was then used to lavage the elbow. Curet te and rongeur were used to debride any necrotic-appearing tissue, particularly around the small sinu s tract at the tip of the elbow and then the tissue was then closed over 1/2 inch iodoform gauze pack ing with interrupted 3-0 nylon sutures. Next, a sterile compressive dressing consisting of Xeroform gauze, sterile 4 x 4s, ABD pad, cast roll, and an Ezekiel wrap was applied. The tourniquet was released. The patient was awakened and taken to recovery in stable condition. Job ID: [id number]
[2021-10-27] MEDS: SODIUM CHLORIDE 0.9% 1000ML 1,000 ML IV SCH (03:24)
[2021-10-27] MEDS: ceFAZolin 2000MG 2,000 MG/15 ML SYR IV SCH (03:24)
[2021-10-27] MEDS: ACETAMINOPHEN 500 MG TAB PO SCH ×3 (05:42→19:37)
--- NOTE | 2021-10-27 08:45 | Hospitalist Progress Note ---
Date of Service October 27, 2021 Assessment & Plan (1) Septic bursitis of elbow: Plan: started with pimple approximately 4 days ago, drained and worsening erythema/pain/drainage. Elevated ESR/CRP on admission Cx in ER pending, many WBC, few gram positive cocci -- staph species on preliminary Blood cultures pending Lyme negative Orthopedics consulted MRI ordered: * 1. The study is limited from a technical standpoint as the patient was unable to tolerate the entire examination. * 2. Extensive subcutaneous edema throughout the elbow. No definite loculated fluid collections to suggest an abscess. * 3. No deep soft tissue edema or osteomyelitis identified. * 4. No joint effusion. * 5. Punctate hypointense focus within the subcutaneous soft tissues at the posterior elbow deep to the skin marker. This is nonspecific and could represent a puncture wound and/or small focus of subcutaneous gas. * 5. Enlarged epitrochlear lymph node which is likely reactive Placed on ancef, no evidence for sepsis at present. Lactic wnl on admission. Can escalate if needed/worsening however patient reports improvement, pain currently /10 Tylenol prn pain, antiemetics if needed Area marked to monitor response POD#1 s/p 1. Irrigation and debridement, left elbow. 2. Olecranon bursectomy. with Dr. Ortiz 10/26. EBL 25cc Cx sent -- monitor NSS @ 100cc/hr ordered post-op by surgery WBC wnl, afebrile. --> Cx came back with MRSA from initial cx and was going to switch to Doxy PO but will give Dapto x 1 IV for today, ortho to discuss recommendations but thinks may need 2 weeks of IV anitbiotics. Did discuss with patient possible Dapto today/PO at discharge and could have close follow up/arrangement of abx with [facility] if needed. Will alert CM of possible needs just in case, given it's the weekend, likely would be difficult to arrange this until friday. (2) DVT prophylaxis: Plan: Young, low risk Nothing for now, ambulation encouraged Per chart, supposed hx bipolar, was on medications at one point but these had been discontinued in the past (3) Discharge planning issues: Plan: may need IV vs PO abx, will monitor throughout today and consider d/c on oral vs IV pending official ortho recommendations. Alerting CM of possible need, although suspect he could go on Doxy PO BID given significant improvement and young/otherwise healthy patient. Admission and Anticipated Discharge Date Admission Date: October 25, 2021 Supervising Physician Co-Signing Physician Notes PA Supervision Note: I did not personally see or examine the patient today, but I verified all sheehan points of FROYLAN Muñoz's assessment and plan with the following exceptions/additions: None Subjective Patient evaluated this morning Doing well, increase in pain just to incision but otherwise decreased erythema and edema to his left arm. Denies fever, chills, chest pain, shortness of breath. Discussed cx with MRSA and giving dose of Dapto IV today and consideration for oral vs IV per discussion with orthopedics who are coming shortly to evaluate/change the dressing. Review of Systems Review of Systems: All systems reviewed & are unremarkable except as noted in HPI & below Physical Exam Physical Exam: General: WD, WN male sitting up in bed, no acute distress HEENT: head normocephalic, atraumatic, mm dry, trachea midline without deviation, hat on Resp: CTAB, no w/c/r, on room air CV: RRR, no m/r/g, no edema, no calf tenderness GI: +BS, soft, non-tender : no oj MSK/Neuro: L elbow with TRIP wrap (removed by ortho PA, sutures intact), decreased edema as well as erythema, well within markings, appropriately tender to palpation, fingers/hand/wrist mobile, sensation intact. Cap refill < 2 seconds, good outside b2b sales strength Skin: see msk, otherwise no other obvious lesions/rashes Psych: AOx3, flat affect Results & Data Results & Data ([facility]) Vital Signs (Past 12 Hours) Vital Signs Temp Pulse Pulse Resp BP Pulse Ox 10/27/21 07:20 36.8 C 84 16 112/64 97 10/27/21 05:32 36.4 C L 78 12 130/73 99 10/27/21 03:28 98 10/27/21 01:17 36.7 C 76 14 122/74 99 10/26/21 21:25 36.3 C L 94 H 16 128/73 100 Laboratory Results 10/27/21 10/27/21 Range/Units 09:39 09:39 WBC 7.27 (4.8-10.8) K/uL RBC 4.36 L (4.7-6.1) M/uL Hgb 13.4 L (14.0-18.0) g/dL Hct 36.9 L (42-52) % MCV 84.6 (80-100) fL MCH 30.7 (25-34) pg MCHC 36.3 H (32-36) g/dL RDW Std Deviation 36.6 (36.4-46.3) fL RDW Coeff of Sera 11.8 (11.5-14.5) % Plt Count 283 (130-400) K/uL MPV 9.3 (7.4-10.4) fL Immature Gran % (Auto) 0.0 % Neut % (Auto) 64.7 % Lymph % (Auto) 25.2 % Morrow % (Auto) 9.9 % Eos % (Auto) 0.1 % Baso % (Auto) 0.1 % Neut # (Auto) 4.70 (1.4-6.5) K/uL Lymph # (Auto) 1.83 (1.2-3.4) K/uL Morrow # (Auto) 0.72 H (0.11-0.59) K/uL Eos # (Auto) 0.01 (0-0.5) K/uL Baso # (Auto) 0.01 (0-0.2) K/uL Immature Gran # (Auto) 0.00 (0.00-0.02) K/uL Sodium 139 (136-145) mmol/L Potassium 3.9 (3.5-5.1) mmol/L Chloride 104 (98-107) mmol/L Carbon Dioxide 28 (21-32) mmol/L Anion Gap 7 (3-11) BUN 12 (6-23) mg/dl Creatinine 0.72 (0.6-1.4) mg/dl Est Cr Clr Drug Dosing 180.8 ml/min Est GFR ( Amer) 149.2 ml/min Est GFR (Non-Af Amer) 128.7 ml/min BUN/Creatinine Ratio 16.7 (10-20) Glucose 89 (70-99(Fasting)) mg/dl Calcium 9.2 (8.5-10.1) mg/dl PG Care Time/CCT Total # of Minutes Spent Total Time Spent with Patient: Total time spent is greater than 50% in coordination of care (as documented) at patient's floor/unit and/or counseling patient: Coding Level of Care Code 31868 Subseq Obs Care Lvl 3 Diagnoses Septic bursitis of elbow M71.129 DVT prophylaxis Z29.9 Discharge planning issues Z02.9
[2021-10-27] MEDS ORDERED: DOXYCYCLINE HYCLATE 100 MG CAP PO SCH (09:30)
[2021-10-27 09:56] LABS: Basophils # (auto) 0.01 K/uL (0-0.2); Basophils % (auto) 0.1 %; Eosinophils # (auto) 0.01 K/uL (0-0.5); Eosinophils % (auto) 0.1 %; Hematocrit (blood only) 36.9 % (42-52); Hemoglobin 13.4 g/dL (14.0-18.0); Lymphocytes # (auto) 1.83 K/uL (1.2-3.4); Lymphocytes % (auto) 25.2 %; Mean Corpuscular Hemoglobin 30.7 pg (25-34); Mean Corpuscular Hgb Conc 36.3 g/dL (32-36); Mean Corpuscular Volume 84.6 fL (80-100); Mean Platelet Volume 9.3 fL (7.4-10.4); Monocytes # (auto) 0.72 K/uL (0.11-0.59); Monocytes % (auto) 9.9 %; Neutrophils % (auto) 64.7 %; Platelet Count 283 K/uL (130-400); RDW Coefficient of Variation 11.8 % (11.5-14.5); RDW Standard Deviation 36.6 fL (36.4-46.3); Red Blood Count 4.36 M/uL (4.7-6.1); White Blood Count 7.27 K/uL (4.8-10.8)
[2021-10-27 10:16] LABS: BUN Creatinine Ratio 16.7 (10-20); Calcium 9.2 mg/dl (8.5-10.1); Creatinine Clr Calc Pharmacy 180.8 ml/min; Est GFR (African American) 149.2 ml/min; Est GFR (Non-African American) 128.7 ml/min; Potassium 3.9 mmol/L (3.5-5.1)
[2021-10-27] MEDS ORDERED: DAPTOmycin 1 MG in SYRINGE 0 ML IV ONE (10:29)
[2021-10-27] MEDS: DOCUSATE SODIUM 100 MG CAP PO SCH ×2 (10:30→19:37)
[2021-10-27] MEDS: MULTIVITAMIN TAB PO SCH (10:30)
[2021-10-27] MEDS ORDERED: DOXYCYCLINE HYCLATE 100 MG in DEXTROSE 5% 100 ML IV SCH (11:00)
--- NOTE | 2021-10-27 11:30 | Orthopedic Progress Note ---
Date of Service October 27, 2021 Assessment & Plan (1) Septic bursitis of elbow: Plan: POD #1 s/p 1. Irrigation and debridement, left elbow. 2. Olecranon bursectomy Dressing change today and the packing was removed from the wound. Spoke with medicine about antibiotic choices. We discussed IV antibiotics versus oral antibiotics. At this time, a dose of IV antibiotics is ordered. Their plan is to transition the patient to oral antibiotics and possibly discharge today. If the patient discharges today, he may follow-up with Dr. Ortiz's clinic in the middle of the week for reevaluation. He may keep the dressing in place until seen back. Admission and Anticipated Discharge Date Admission Date: October 25, 2021 Subjective The pain is controlled in the left elbow today. He gets occasional increases in pain. Generally, feeling better. Physical Exam Constitutional: WD/WN, vitals as above cooperative; no acute distress Musculoskeletal: Extremities: + elbow/forearm abnormality Left (Posterior elbow incision well approximated. No drainage. Improved erythema and swelling) Left elbow: Significantly improved swelling and erythema in the upper arm and lower arm compared to preop. The iodoform gauze packing was removed today during dressing change. Skin: no rashes, warm and dry Neurologic: normal touch/pain/proprioception Psychiatric: Orientation: alert and oriented x 3 Speech: normal rate/rhythm/volume of speech Affect: + flat affect Results & Data ([facility]) Vital Signs (Past 12 Hours) Vital Signs Temp Pulse Resp BP Pulse Ox 10/27/21 07:20 36.8 C 84 16 112/64 97 10/27/21 05:32 36.4 C L 78 12 130/73 99 10/27/21 03:28 98 10/27/21 01:17 36.7 C 76 14 122/74 99 Laboratory Results Preoperative cultures growing MRSA. Intraoperative cultures growing a staph organism.
[2021-10-27] MEDS: DAPTOmycin 500 MG in SYRINGE 0 ML IV SCH (11:50)
[2021-10-27] MEDS: SENNA 8.6 MG TAB PO SCH (19:37)
[2021-10-28] MEDS: ACETAMINOPHEN 500 MG TAB PO SCH (05:30)
--- NOTE | 2021-10-28 08:18 | Discharge Summary ---
Date of Service October 28, 2021 Admission HPI Per Admitting Provider 4 days ago a red pimple on L elbow, then it opened and started draining - and then had some tracking redness/soreness/stiffness L arm proximal to elbow as well as distal on forearm. went to [facility] - told to come to ER. painful and elbow restricted due to stiffness but feels like it's more of a soft tissue stiffness than joint pain/stiffness. no f/c/s. no n/v. 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 does vape more or less daily, occassional wine was dx'd w bipolar before but notes that he's off all meds and believes the dx was erroneous. med hx none crhonic surg tonsils and wisdom teeth fam hx mom DM soc vapes as above Admission Exam Per Admitting Provider General he is awake and alert pleasant but does appear anxious. No distress. HEENT normocephalic atraumatic mucous membranes moist. Cardio is regular to maybe slightly tachycardic but no rubs murmurs gallops. Lungs clear to auscultation bilaterally no rales rhonchi or wheeze with good effort. Abdomen is soft nondistended nontender no masses organomegaly. Extremities show no cyanosis clubbing or edema no calf tendernesssee skin for left elbow. Neuro shows cranial nerves II through XII are grossly intact gross motor and sensory intact. Good strength in his left hand, good strength in his left elbow. Skin shows very warm erythema that is very tender and somewhat fluctuant at the extensor side of his left elbow, with an open wound consistent with a pustule that is draining. Right now the drainage is mostly bloody, although it apparently was exudative earlier. Very tender very erythematous, he has erythema tracking approximately 5 to 6 cm proximal on the extensor side of his arm, and also tracks most of the way to his wrist distally but very vague and patchy and not nearly as tender as the area right around his elbow. There is no crepitus, and the only area of fluctuance is immediately by his elbow. Again elbow itself seems to have fairly full active and passive range of motion only limited by what seems to be soft tissue pain and swelling. Mental status shows good reasonable recall normal mood and affect good judgment and insight. Musculoskeletal exam as above, no other gross deformities noted Principal Diagnosis Septic olecranon bursitis this is a question Discharge Exam General: WD, WN male sitting up in bed, no acute distress HEENT: head normocephalic, atraumatic, mm dry, trachea midline without deviation, hat on covering eyes initially Resp: CTAB, no w/c/r, on room air, [id number]% CV: RRR, no m/r/g, no edema, no calf tenderness GI: +BS, soft, non-tender : no jo MSK/Neuro: L elbow with EZEKIEL wrap (removed by ortho PA, sutures intact), decreased edema as well as erythema, well within markings, appropriately tender to palpation, fingers/hand/wrist mobile, sensation intact. Cap refill < 2 seconds, good manager of disaster recovery strength Skin: see msk, otherwise no other obvious lesions/rashes Psych: AOx3, flat affect, no HI/SI Discharge Data Allergies Allergy/AdvReac Type Severity Reaction Status Date / Time amoxicillin Allergy Intermediate Hives Verified 10/26/21 18:45 sulfamethoxazole Allergy Intermediate Hives Verified 10/26/21 18:45 [From Bactrim] trimethoprim [From Bactrim] Allergy Intermediate Hives Verified 10/26/21 18:45 Consultations 10/25/21 16:28 ED Decision to Admit Stat 10/25/21 16:40 Consult Orthopedic Surgery Routine Procedures Performed Operation Date: 10/26/21 15:00 Actual Procedures p Left Elbow Irrigation and Debridement and Left Olecranon Bursectomy(Left) - Angel Ortiz, Ordered Studies Elbow X-Ray 10/25/21 15:17 XR elbow LT min 3V routine CLINICAL HISTORY: pain, swelling, redness, purulent discharge. COMPARISON STUDY: No previous studies for comparison. TECHNIQUE: 3 left elbow views FINDINGS: Bones: There is no evidence for an acute fracture or dislocation. There is no lytic or blastic lesion. Joints: The joint spaces are maintained. There is no evidence for an intra- articular effusion or elevation of the fat pads. The bones are in anatomic alignment. Soft tissues: There is mild soft tissue swelling seen surrounding the elbow particularly posteriorly. There is no radiopaque foreign body. IMPRESSION: 1. No acute osseous pathology. 2. Mild soft tissue swelling. ACT 112: Negative or not required by law. Electronically signed by: Yrn Juárez M.D. 10/25/2021 4:29 PM Elbow MRI 10/25/21 15:47 MR elbow LT wo con HISTORY: Left elbow redness, swelling, purulent discharge TECHNIQUE: Sagittal T2 and axial T1-weighted sequences of the left elbow were performed without contrast. The patient was unable to tolerate the remaining examination. COMPARISON STUDY: Left elbow radiograph 10/25/2021. FINDINGS: The study is limited from a technical standpoint due to the patient unable to tolerate the entire examination and motion artifact. There is normal marrow signal intensity seen throughout the visualized osseous structures. No fracture or dislocation. No joint effusion. Diffuse subcutaneous edema seen throughout the elbow. No significant muscular deep soft tissue edema identified. No definite loculated fluid collections to suggest an abscess. Best seen on sagittal T2 sequence image 14 there is a punctate hyperintense focus within the subcutaneous soft tissues deep to the skin marker. This is nonspecific but could represent a small puncture wound and/or focus of subcutaneous gas. There is an enlarged epitrochlear lymph node measuring 1.6 x 1.3 cm. The biceps and triceps tendons appear intact. IMPRESSION: 1. The study is limited from a technical standpoint as the patient was unable to tolerate the entire examination. 2. Extensive subcutaneous edema throughout the elbow. No definite loculated fluid collections to suggest an abscess. 3. No deep soft tissue edema or osteomyelitis identified. 4. No joint effusion. 5. Punctate hypointense focus within the subcutaneous soft tissues at the posterior elbow deep to the skin marker. This is nonspecific and could represent a puncture wound and/or small focus of subcutaneous gas. 5. Enlarged epitrochlear lymph node which is likely reactive ACT 112: Negative or not required by law. Electronically signed by: Trent Green M.D. 10/26/2021 7:21 AM Hospital Course (1) Septic bursitis of elbow: started with pimple approximately 4 days ago, drained and worsening erythema/pain/drainage. Elevated ESR/CRP on admission Cx in ER pending, many WBC, few gram positive cocci -- staph species on preliminary, final MRSA Blood cultures NGTD 48 hours Lyme negative Orthopedics consulted MRI ordered: * 1. The study is limited from a technical standpoint as the patient was unable to tolerate the entire examination. * 2. Extensive subcutaneous edema throughout the elbow. No definite loculated fluid collections to suggest an abscess. * 3. No deep soft tissue edema or osteomyelitis identified. * 4. No joint effusion. * 5. Punctate hypointense focus within the subcutaneous soft tissues at the posterior elbow deep to the skin marker. This is nonspecific and could represent a puncture wound and/or small focus of subcutaneous gas. * 5. Enlarged epitrochlear lymph node which is likely reactive Placed on ancef, no evidence for sepsis. Lactic wnl on admission. Area marked to monitor response --> IMPROVED s/p 1. Irrigation and debridement, left elbow. 2. Olecranon bursectomy. with Dr. Ortiz 10/26. EBL 25cc Cx sent -- MRSA WBC wnl, afebrile DIscussed with ortho and given Daptomycin IV x 2 doses and given improvement and young/otherwise healthy discharging on course of Doxycyline PO BID to complete course x 14 days To have follow up with orthopedics mid-week for follow-up/monitoring (2) DVT prophylaxis: Young, low risk Nothing for now, ambulation encouraged Per chart, supposed hx bipolar, was on medications at one point but these had been discontinued in the past (3) Discharge planning issues: Dispo-stable for dc to home Total Time Total Time Spent Total Time Spent (In Minutes): 45 Discharge Plan Discharge Items Patient Disposition: Home - Self-Care Reason For Visit: SEPTIC OLECRANON BURSITIS Discharge Diagnosis: Septic Bursitis Goals: You have been hospitalized for an urgent problem which required surgery. During your stay at [facility], we have made an effort to correct the problem that brought you to the hospital while keeping you as comfortable as possible. Surgery and medications were used to bring your condition under control and your discharge instructions will include directions for any medications you should take after leaving the hospital. Please make sure to follow the advice of your surgeon regarding follow up with the surgeon and with your primary care provider. Activity: As commented below Non-emergency contact: Surgeon Call non-emergency contact if: your pain is not controlled, your pain is worsening and your temperature is above 101 Follow-up/Referrals: Angel Ortiz DO [Surgeon] - (Call to make a follow-up appointment for approximately 5 to 7 days from surgery.) Kentrell Suazo DO [Primary Care Provider] - Diet: Regular Addtl Attending Provider Instructions: You have been hospitalized for infection in your elbow. Orthopedics was consulted and you underwent incision and debridement and removal of the infected bursa. Cultures showed MRSA, and for this reason your antibiotics were change to more targeted therapy and you received IV Daptomycin while inpatient and given young age/otherwise healthy and improvement quickly, you are being sent home on oral Doxycycline 100mg by mouth twice a day and should have close follow up with orthopedics this week. You should keep the dressing in place until seen by orthopedics in follow up. If you do not hear from them tomorrow, please call their office at [phone]. You should follow up with your primary care provider in the next 7-10 days to monitor your progress. Please return to the emergency department with any increased fevers, uncontrolled pain, inability to keep up with oral intake, for worsening redness/swelling, or for any other symptoms concerning for you. It has been a pleasure being a part of the medical team providing for you while you have been in the hospital. Take care! Addtl Corporate Coordinator Provider Instructions: ACTIVITY RECOMMENDATIONS: * Avoid lifting anything heavier than a medium water glass until your first post operative visit. SPECIAL CARE INSTRUCTIONS: * LEAVE YOUR DRESSING IN PLACE. THIS WILL BE REMOVED WHEN SEEN LATER THIS WEEK IN THE OFFICE. * Some drainage onto the dressing may occur. This is normal. * If the bandage feels excessively tight, you may loosen the elastic bandage. Then call the physician's office for further instructions. * If possible, keep your hand elevated above the level of your heart for the first 2 post operative days. You may use a sling if necessary. * You should move your fingers regularly (50-100 motions per hour) unless otherwise instructed. SPECIAL PRECAUTIONS: * If you notice increased drainage, fever over 101 degrees F. or severe, unremitting pain, call your physician/office at . * You may have been prescribed pain medication. If you experience nausea and/or skin rash, discontinue this medication and contact our office for an alternative medication. FOLLOW UP VISIT: If appointment is not already scheduled: Please call [facility] to make a follow-up appointment for 5- 7 days after your surgery at . Pending Studies at Discharge: Yes Studies:: Blood cultures -- NO GROWTH TO DATE Stand-Alone Forms: My [employer], Smoking Cessation Medications and DC Order Prescriptions: New acetaminophen [Tylenol Extra Strength] 500 mg Tablet 1,000 mg PO Q8 Qty: 0 RF: 0 oxycodone 5 mg Tablet 5 - 10 mg PO Q4H PRN (Reason: pain) Qty: 14 RF: 0 doxycycline hyclate 100 mg tablet 100 mg PO BID 12 Days Qty: 24 RF: 0 Discharge Orders: Discharge Order (Routine); Ordered 10/28/21 Ordered By: Carrie Muñoz Admission Data Admit Date/Time: 10/25/21 16:43 Attending Provider: Lillie Kelley Admit Provider: Joseph Segura Primary Care Provider: Kentrell Suazo Other Providers: Joseph Segura ; Gómez Shah Other Interventions: Discharge Summary Assessment (RN) Last Done: 10/28/21 12:06 Supervising Physician Co-Signing Physician Notes PA Supervision Note: I personally saw and examined the patient. I verified all sheehan points and agree with FROYLAN Muñoz with the following exceptions and/or additions: S-patient having some pain in the left elbow. Denies any other issues, no diarrhea or abdominal pains. He is ready for discharge home. Remains afebrile O- Vitals reviewed Gen: AAOx3, NAD HEENT: Anicteric sclerae, EOMI CV: RRR no mgr nl S1S2 Pulm: CTAB no wcr Abd: +BS soft NT ND no masses or hernias Ext: LUE in dressing and Ezekiel wrap not removed Skin: No rashes, warm/dry Neuro: Full strength throughout [id number] male here with left septic olecranon bursitis, now status post bursectomy. Cultures growing MRSA Received 2 doses of IV daptomycin will finish a 14-day course total of antibiotics for 12 more days of p.o. doxycycline Follow-up with orthopedics in the clinic Stable for discharge to home Coding Level of Care Code 47274 OBS Care - Discharge Diagnoses Septic bursitis of elbow M71.129 DVT prophylaxis Z29.9 Discharge planning issues Z02.9
--- NOTE | 2021-10-28 08:43 | Orthopedic Progress Note ---
Date of Service October 28, 2021 Assessment & Plan (1) Septic bursitis of elbow: Plan: POD #2 s/p 1. Irrigation and debridement, left elbow. 2. Olecranon bursectomy Dressing to remain in place until follow-up later this week Transition to oral antibiotics today. Discharge planningthe patient will probably be discharged later today on oral antibiotics. He will follow up in our office later this week. Admission and Anticipated Discharge Date Admission Date: October 25, 2021 Subjective The pain is controlled in the left elbow today. No complaints with the left upper extremity today. Physical Exam Constitutional: WD/WN, vitals as above cooperative; no acute distress Musculoskeletal: Extremities: + elbow/forearm abnormality Left (Improved upper/lower arm swelling. Forearm is soft. Fingers mobile.) Skin: no rashes, warm and dry Neurologic: normal touch/pain/proprioception Psychiatric: Orientation: alert and oriented x 3 Speech: normal rate/rhythm/volume of speech Affect: + flat affect Results & Data ([facility]) Vital Signs (Past 12 Hours) Vital Signs Temp Pulse Resp BP Pulse Ox 10/28/21 07:46 36.7 C 69 14 117/70 98 10/27/21 22:09 37.5 C 90 18 116/68 97
[2021-10-28] MEDS: DOCUSATE SODIUM 100 MG CAP PO SCH (08:54)
[2021-10-28] MEDS: MULTIVITAMIN TAB PO SCH (08:54)
[2021-10-28] MEDS: DAPTOmycin 500 MG in SYRINGE 0 ML IV SCH (11:12)
== END 2021-10-28 14:39 | disposition home or self-care (01) ==
LOC: ED 15:02 → 3N 15:02 → SUATTDRO 16:43 → 3N 18:33
DX: L03.114 Cellulitis of left upper limb; M70.22 Olecranon bursitis, left elbow; Z88.1 Allergy status to other antibiotic agents; Z88.2 Allergy status to sulfonamides